=== PATIENT | female | born 1975 | race Caucasian/White ===

== ENCOUNTER → 2017-09-09 | Outpatient (CLI) | payer OTHER ==
--- NOTE | 2017-09-09 17:43 | DIAGNOSTIC IMAGING REPORT ---
CT SCAN OF THE RIGHT WRIST WITHOUT IV CONTRAST CLINICAL HISTORY: Right wrist contusion. COMPARISON STUDY: No priors. TECHNIQUE: CT scan of the right wrist is performed from the distal radius and ulna to the proximal phalanges. Images are reviewed in the axial, sagittal, and coronal planes. IV contrast was not administered for this examination. Note that interpretation is suboptimal without plain film correlate. A dose lowering technique was utilized adhering to the principles of ALARA. CT DOSE: 200.03 mGy.cm FINDINGS: The examination is performed through a splint. The skeletal structures are well mineralized. There is an impacted and comminuted fracture of the distal radial metaphysis with intra-articular extension posteriorly. There is apex dorsal angulation. The radiocarpal articulation appears maintained. A tiny avulsion fracture is suspected at the tip of the ulnar styloid. No additional fracture is seen. The carpal bones appear intact. Soft tissue edema is present around the wrist. IMPRESSION: 1. There is an impacted and comminuted fracture of the distal radial metaphysis with apex dorsal angulation and intra-articular extension. 2. Suspect a tiny avulsion fracture at the tip of the ulnar styloid. 3. No carpal bone fracture is seen. Electronically signed by: Grupo Mitchell M.D. 09/09/2017 5:42 PM Dictated Date/Time: 09/09/2017 5:35 PM
== END | disposition home or self-care (01) ==
LOC: C.CTS 16:24
PROVIDERS: ATTEND Orthopaedic Surgery Sports Medicine
DX: S60.211D Contusion of right wrist, subsequent encounter (principal); X58.XXXD Exposure to other specified factors, subsequent encounter